=== PATIENT | male | born 1950 | race Caucasian/White ===

== ENCOUNTER 2024-05-15 05:33 | Observation (INO) ==
[2024-05-15 06:13] LABS: ABS Basophils 0.1 10^3/uL (0.0-0.1); ABS Eosinophils 0.2 10^3/uL (0.0-0.5); ABS Lymphocytes 1.4 10^3/uL (1.0-4.8); ABS Monocytes 1.4 10^3/uL (0.0-1.1); ABS Neutrophils 10.5 10^3/uL (1.5-7.6); ABS Nucleated RBC 0.01 10^3/ul; Eosinophil % 1.2 %; Hemoglobin 14.9 g/dL (13.2-16.3); Lymphocyte % 10.2 %; Mean Corpuscular Hemoglobin 32.3 pg (27-33); Mean Corpuscular Hgb Conc 33.9 g/dL (31-36); Mean Corpuscular Volume 95.3 fL (80-97); Mean Platelet Volume 8.3 fL (7.5-11.2); Platelet Count 213 10^3/uL (150-450); Red Blood Count 4.62 10^6/uL (4.06-5.63); Red Cell Distribution Width 13.6 % (12-17); White Blood Count 13.6 10^3/uL (3.6-10.2)
[2024-05-15 06:20] LABS: INR 1.02 (0.85-1.14)
[2024-05-15] MEDS: Aspirin EC 325 mg TAB.EC PO ONE (06:26)
[2024-05-15 06:31] LABS: ALT 25 U/L (7-52); AST 23 U/L (13-39); Albumin 4.2 g/dL (3.2-5.2); Albumin/Globulin Ratio 1.8 (1-3); Alkaline Phosphatase 85 U/L (35-149); Anion Gap 8 mmol/L (2-16); Blood Urea Nitrogen 21 mg/dL (6-24); CO2 Carbon Dioxide 30 mmol/L (22-32); Calcium 9.3 mg/dL (8.6-10.3); Chloride 103 mmol/L (101-111); Creatinine, Serum 0.95 mg/dL (0.67-1.17); Globulin 2.4 g/dL (2-4); Glucose 116 mg/dL (70-100); Potassium 4.4 mmol/L (3.5-5.0); Sodium 141 mmol/L (135-145); Total Bilirubin 0.8 mg/dL (0.2-1.0); Total Protein 6.6 g/dL (6.4-8.9); eGFR CKD-EPI 84.5 (>60)
[2024-05-15 06:38] LABS: High Sens Troponin Baseline < 3 pg/mL (<20)
[2024-05-15 07:50] LABS: High Sensitivity Troponin 1 Hr < 3 pg/mL (<20)
[2024-05-15] MEDS ORDERED: Ondansetron 4 mg VIAL 2 MG/ML 2 ml VIAL IV PRN (08:02)
[2024-05-15 08:29] LABS: Cholesterol 165 mg/dL; HDL Cholesterol 56.4 mg/dL; LDL Cholesterol 85 mg/dL; Triglycerides 118 mg/dL
[2024-05-15] MEDS: Nitro 2% OINT (Nitroglycerin) 1 INCH/PAK TOPICAL ONE (08:42)
[2024-05-15] MEDS: Enoxaparin 40 MG/0.4 ML SYR SUBCUT SCH (08:44)
[2024-05-15] MEDS: Potassium Chlor 20 meq TAB.ER PO SCH (10:34)
[2024-05-15 12:02] LABS: High Sensitivity Troponin 3 Hr 3 pg/mL (<20)
[2024-05-15 13:29] VITALS: BP 134/77
[2024-05-16] MEDS ORDERED: Aspirin EC 81 mg TAB.EC (enteric coated) PO SCH (09:00)
== END 2024-05-15 13:29 | disposition home or self-care (01) ==
LOC: EDHOLD 05:33 → ED 05:33 → MEDTELE 10:31 → EDHOLD 12:44
PROVIDERS: ADMIT Student in an Organized Health Care Education/Training Program; ATTEND Student in an Organized Health Care Education/Training Program